=== PATIENT | female | born 1955 | race African-American/Black ===

== ENCOUNTER 2021-10-20 18:52 | Inpatient (IN) | payer BC, OTHER ==
[2021-10-20 19:21] VITALS: BMI 44.4
[2021-10-20 21:12] LABS: BASO % 0.5 % (0-2.0); LYMPH % 19.4 % (8-40); MCH 29.5 pg (25.7-33.7); MCHC 33.3 g/dl (32.0-36.0); MEAN CELL VOLUME 88.7 fl (80-96); MEAN PLT VOLUME 9.5 fl (7.5-11.1); MONO % 11.8 % (3.8-10.2); NEUT % 68.3 % (42.8-82.8); PLATELET COUNT 167 10^3/uL (134-434); RBC 4.73 M/mm3 (3.60-5.2); WHITE BLOOD COUNT 4.3 K/mm3 (4.0-10.0)
[2021-10-20 21:14] LABS: EPI CELLS 30 /uL (0-25.1); HYALINE CASTS 4 /uL (0-3.1); URINE APPEARANCE CLOUDY; URINE BACTERIA >9,000 /uL (0-1359); URINE BILIRUBIN NEGATIVE (NEGATIVE); URINE COLOR YELLOW; URINE GLUCOSE (UA) 3+ (NEGATIVE); URINE KETONE NEGATIVE (NEGATIVE); URINE LEUK ESTERASE NEGATIVE (NEGATIVE); URINE NITRITE POSITIVE (NEGATIVE); URINE PROTEIN 1+ (NEGATIVE); URINE RBC 35 /uL (0-23.9)
[2021-10-20 21:17] LABS: INR 1.18 (0.83-1.09); PROTHROMBIN TIME (PATIENT) 13.2 SEC (9.7-13.0)
[2021-10-20 21:20] LABS: ACTIVATED PTT 26.6 SECONDS (25.2-36.5)
[2021-10-20 21:21] LABS: OPIATES, URI NEGATIVE (NEGATIVE)
[2021-10-20 21:22] LABS: COCAINE, UR NEGATIVE (NEGATIVE); PHENCYCLIDINE,URINE NEGATIVE (NEGATIVE); URINE BARBITURATES NEGATIVE (NEGATIVE); URINE BENZODIAZEPINES NEGATIVE (NEGATIVE)
[2021-10-20] MEDS ORDERED: CEFTRIAXONE 1,000 MG in DEXTROSE 5%-WATER - 50 ML IVPB ONE (21:25)
[2021-10-20 21:30] LABS: CHLORIDE 97 mmol/L (98-107); SODIUM 133 mmol/L (136-145)
[2021-10-20 21:32] LABS: ANION GAP 9 MMOL/L (8-16); BLOOD UREA NITROGEN 16.3 mg/dL (7-18); CALCIUM 8.5 mg/dL (8.5-10.1); CO2 27 mmol/L (21-32); METHADONE, UR NEGATIVE (NEGATIVE); URINE AMPHETAMINES NEGATIVE (NEGATIVE)
[2021-10-20 21:33] LABS: ALBUMIN 2.9 g/dl (3.4-5.0); GLUCOSE,RANDOM 354 mg/dL (74-106); MAGNESIUM 2.1 mg/dL (1.8-2.4)
[2021-10-20 21:35] LABS: CREATININE 1.1 mg/dL (0.55-1.3)
[2021-10-20 21:36] LABS: SGOT/AST 21 U/L (15-37); SGPT/ALT 20 U/L (13-61)
[2021-10-20 21:37] LABS: BILIRUBIN,TOTAL 0.5 mg/dL (0.2-1); TOT PROT 7.2 g/dl (6.4-8.2)
[2021-10-20 21:38] LABS: ALK PHOS 81 U/L (45-117)
[2021-10-20 22:03] LABS: URINE WBC 160.4 /uL (0-25.8)
[2021-10-20] MEDS ORDERED: CEFTRIAXONE 1 GM/50 ML BAG ONE (22:22)
[2021-10-20] MEDS ORDERED: ATORVASTATIN CA 80 MG TABLET (FP) PO ONE (22:55)
[2021-10-20] MEDS ORDERED: ASPIRIN 81 MG CHEWABLE TABLETS PO ONE (22:55)
[2021-10-20] MEDS ORDERED: ASPIRIN 325 MG ENTERIC COATED TABLET (FP) ONE (23:52)
[2021-10-20] MEDS ORDERED: ATORVASTATIN CA 80 MG TABLET (FP) ONE (23:52)
[2021-10-21] MEDS ORDERED: LISINOPRIL 5 MG TABLET PO SCH (01:02)
[2021-10-21 01:08] LABS: CHOLESTEROL 239 mg/dL (50-200)
[2021-10-21 01:09] LABS: TRIGLYCERIDES 121 mg/dL (0-150)
[2021-10-21 01:10] LABS: LDL CHOLESTEROL (ONLY SJRH) 153 mg/dL (5-100)
[2021-10-21 01:11] LABS: HDL CHOLESTEROL 45 mg/dL (40-60)
[2021-10-21] MEDS ORDERED: LISINOPRIL 10 MG TABLET PO SCH (01:35)
[2021-10-21] MEDS: INSULIN SLIDING SCALE (NOVOLOG) 1 VIAL SQ SCH ×5 (03:42→21:41)
[2021-10-21 08:17] LABS: HEMATOCRIT 41.4 % (32.4-45.2); HEMOGLOBIN 14.1 GM/dL (10.7-15.3); MCH 30.3 pg (25.7-33.7); MCHC 33.9 g/dl (32.0-36.0); MEAN CELL VOLUME 89.4 fl (80-96); PLATELET COUNT 165 10^3/uL (134-434); RBC 4.63 M/mm3 (3.60-5.2); RDW 12.8 % (11.6-15.6); WHITE BLOOD COUNT 3.7 K/mm3 (4.0-10.0)
[2021-10-21 09:04] LABS: ALBUMIN 2.7 g/dl (3.4-5.0); BLOOD UREA NITROGEN 17.8 mg/dL (7-18); CALCIUM 8.5 mg/dL (8.5-10.1); MAGNESIUM 2.1 mg/dL (1.8-2.4)
[2021-10-21 09:07] LABS: CREATININE 1.2 mg/dL (0.55-1.3); PHOSPHOROUS 2.8 mg/dL (2.5-4.9)
[2021-10-21 09:08] LABS: BILIRUBIN,TOTAL 0.4 mg/dL (0.2-1); TOT PROT 6.9 g/dl (6.4-8.2)
[2021-10-21] MEDS ORDERED: AMMONIUM LACTATE 12% LOTION 225 GM BOTTLE TP PRN (09:16)
[2021-10-21] MEDS ORDERED: LISINOPRIL 5 MG TABLET ONE (10:32)
[2021-10-21] MEDS ORDERED: CLOPIDOGREL BISULFATE 75 MG TABLET (FP) ONE (10:32)
[2021-10-21] MEDS ORDERED: CEFTRIAXONE 1 GM/50 ML BAG ONE (10:32)
[2021-10-21] MEDS ORDERED: ENOXAPARIN NA (PORCINE) 40 MG/0.4 ML DISP.SYRIN SQ ONE (10:33)
[2021-10-21] MEDS ORDERED: cefTRIAXone SODIUM 1 GM VIAL ONE (12:44)
[2021-10-21] MEDS ORDERED: DEXTROSE 5%-WATER - 50 ML IVPB ONE (12:45)
[2021-10-21] MEDS: ASPIRIN COATED 81 MG TABLET.EC PO SCH (13:14)
[2021-10-21] MEDS: CLOPIDOGREL BISULFATE 75 MG TABLET (FP) PO SCH (13:14)
[2021-10-21] MEDS: LISINOPRIL 10 MG TABLET PO SCH (13:14)
[2021-10-21] MEDS: ENOXAPARIN NA (PORCINE) 40 MG/0.4 ML DISP.SYRIN SQ SCH ×2 (13:14→21:41)
[2021-10-21] MEDS: CEFTRIAXONE 1 GM in DEXTROSE 5%-WATER - 50 ML IVPB SCH (13:20)
[2021-10-21] MEDS: ACETAMINOPHEN 325 MG TABLET (FP) PO PRN (20:13)
[2021-10-21] MEDS ORDERED: INSULIN (NOVOLOG) ASPART 100 UNITS/ML 10ML VIAL ONE (21:39)
[2021-10-21] MEDS: ATORVASTATIN CA 40 MG TABLET (FP) PO SCH (21:41)
[2021-10-21] MEDS ORDERED: ATORVASTATIN CA 80 MG TABLET (FP) PO SCH (22:00)
[2021-10-22] MEDS: INSULIN SLIDING SCALE (NOVOLOG) 1 VIAL SQ SCH ×4 (06:00→21:30)
[2021-10-22] MEDS ORDERED: cefTRIAXone SODIUM 1 GM VIAL ONE (10:36)
[2021-10-22] MEDS ORDERED: DEXTROSE 5%-WATER - 50 ML IVPB ONE (10:37)
[2021-10-22] MEDS: CEFTRIAXONE 1 GM in DEXTROSE 5%-WATER - 50 ML IVPB SCH (11:06)
[2021-10-22] MEDS: ENOXAPARIN NA (PORCINE) 40 MG/0.4 ML DISP.SYRIN SQ SCH ×2 (11:06→21:30)
[2021-10-22] MEDS: CLOPIDOGREL BISULFATE 75 MG TABLET (FP) PO SCH (11:07)
[2021-10-22] MEDS: ASPIRIN COATED 81 MG TABLET.EC PO SCH (11:07)
[2021-10-22] MEDS: LISINOPRIL 10 MG TABLET PO SCH (11:07)
[2021-10-22] MEDS: ATORVASTATIN CA 40 MG TABLET (FP) PO SCH (21:30)
[2021-10-22] MEDS: ACETAMINOPHEN 325 MG TABLET (FP) PO PRN (21:30)
[2021-10-23] MEDS: INSULIN SLIDING SCALE (NOVOLOG) 1 VIAL SQ SCH ×2 (06:44→12:40)
[2021-10-23 09:11] VITALS: BP 138/74; PULSE 71; TEMP 98.7
[2021-10-23] MEDS ORDERED: cefTRIAXone SODIUM 1 GM VIAL ONE (09:47)
[2021-10-23] MEDS ORDERED: DEXTROSE 5%-WATER - 50 ML IVPB ONE (09:47)
[2021-10-23] MEDS: CEFTRIAXONE 1 GM in DEXTROSE 5%-WATER - 50 ML IVPB SCH (10:20)
[2021-10-23] MEDS: ENOXAPARIN NA (PORCINE) 40 MG/0.4 ML DISP.SYRIN SQ SCH (10:22)
[2021-10-23] MEDS: LISINOPRIL 10 MG TABLET PO SCH (10:26)
[2021-10-23] MEDS: ASPIRIN COATED 81 MG TABLET.EC PO SCH (10:26)
[2021-10-23] MEDS: CLOPIDOGREL BISULFATE 75 MG TABLET (FP) PO SCH (10:26)
== END 2021-10-23 13:35 | disposition home or self-care (01) | DRG 65 ==
LOC: JER 18:52 → JERBED 23:09 → J4W 10-21 13:02
PROVIDERS: ATTEND Internal Medicine
DX: I63.9 Cerebral infarction, unspecified (principal); N39.0 Urinary tract infection, site not specified; Z68.41 Body mass index [BMI] 40.0-44.9, adult; R29.700 NIHSS score 0; I10 Essential (primary) hypertension; E78.5 Hyperlipidemia, unspecified; B96.20 Unspecified Escherichia coli [E. coli] as the cause of diseases classified elsewhere; B95.5 Unspecified streptococcus as the cause of diseases classified elsewhere; L85.3 Xerosis cutis; B35.1 Tinea unguium; E11.65 Type 2 diabetes mellitus with hyperglycemia; R32 Unspecified urinary incontinence; E66.01 Morbid (severe) obesity due to excess calories; F69 Unspecified disorder of adult personality and behavior
CPT/HCPCS: 36415; 70450-TC; 70551-TC; 71045-TC-FY; 80053; 80061; 80307; 81003; 82010; 82550; 82553; 82962; 83036; 83605; 83735; 84100; 84443; 84484; 85025; 85027; 85610; 85730; 87040; 87086; 87186; 93005; 93010; 93306-TC; 93880-TC; 97116-GP; 97161-GP; 99285-25; C9803; U0003; U0005